=== PATIENT | female | born 1970 | race Caucasian/White ===

== ENCOUNTER 2020-08-25 21:55 | Emergency (ER) | payer OTHER ==
[~2020-08-25] VITALS: Ht 167.6 cm; Wt 70.3 kg
--- NOTE | 2020-08-25 22:00 | NUR ---
PT BIBRA FROM A BAR PER RA, C/O SLURRED SPEECH S/P DRINKING ALCOHOL. PT NOT ANSWERING QUESTIONS UPON TRIAGE. RESPIRATIONS EVEN AND UNLABORED. VITAL SIGNS STABLE. NO ACUTE DISTRESS NOTED AT THIS TIME. PLACED ON MONITOR, WILL CONTINUE TO MONITOR.
--- NOTE | 2020-08-26 02:40 | NUR ---
PATIENT IS ALERT AND ORIENTED x4.
--- NOTE | 2020-08-26 02:42 | NUR ---
PATIENT IS AMBULATORY WITH A STEADY GAIT.
--- NOTE | 2020-08-26 02:44 | NUR ---
Patient discharged to home in stable condition. Written and verbal after care instructions given. Patient verbalizes understanding of instruction.
--- NOTE | 2020-08-26 02:45 | NUR ---
PATIENT IS PICKED UP BY EX-BOYFRIEND,
[2020-08-26 03:46] VITALS: BP 126/71
== END 2020-08-26 02:46 | disposition home or self-care (01) ==
LOC: ER 21:58 → EDBD 21:58 → ER 08-26 02:46
DX: F10.129 Alcohol abuse with intoxication, unspecified (principal); R47.81 Slurred speech; Y90.9 Presence of alcohol in blood, level not specified
CPT/HCPCS: 82962-TC